=== PATIENT | male | born 1965 | race Caucasian/White ===

== ENCOUNTER → 2016-06-11 | Outpatient (CLI) | payer OTHER | LOC: BMCIMAGING 12:52 | PROVIDERS: ATTEND Family Medicine | DX: R05 Cough (principal) ==

== ENCOUNTER → 2016-10-10 | Outpatient (CLI) | payer OTHER | LOC: BMCIMAGING 09:25 | PROVIDERS: ATTEND Family Medicine | DX: M25.532 Pain in left wrist (principal) ==